=== PATIENT | female | born 1970 | race Caucasian/White ===

== ENCOUNTER 2023-12-25 08:56 | Day surgery (SDC) | payer BC ==
[~2023-12-25] VITALS: Ht 162.6 cm; Wt 90.7 kg
[2023-12-25] VITALS (17 sets, daily range): BP systolic 98–163; BP diastolic 59–103
[~2023-12-25 08:56] MED LIST: ACET325 PO; CYCL10; Flomax0.4 MG PO; Lactated Ringer's 1,000 ML IV SCH; NAPR220 PO; Percocet 5-3251 EACH PO
[2023-12-25] MEDS ORDERED: propofoL 40 ML IV ONE (10:19)
--- NOTE | 2023-12-25 10:24 | NUR ---
12/25/23 Leena Crouch HISTORY, CHART, MEDICATIONS AND ALLERGIES REVIEWED BEFORE START OF PROCEDURE. PATIENT CONFIRMS NPO STATUS AND AGREES WITH SCHEDULED PROCEDURE. 3-LEAD EKG REVIEWED WITH PHYSICIAN PRIOR TO START OF PROCEDURE. MONITOR INTACT WITH CONTINUOUS PULSE OXIMETRY,CAPNOGRAPHY, 3-LEAD EKG, INTERMITTENT BP. SUPPLEMENTAL O2 TO BE TITRATED THROUGHOUT PROCEDURE TO MAINTAIN O2 SATURATION ABOVE 90%. PATIENT DETERMINED TO BE ASA APPROPRIATE FOR PROPOFOL SEDATION PRIOR TO START OF PROCEDURE BY .MALLAMPATI CLASS 2 AIRWAY: COMPLETE VISUALIZATION OF THE UVULA.
[2023-12-25] MEDS ORDERED: Atropine Sulfate 0.1 MG/ML 10ML SYR ONE (10:33)
--- NOTE | 2023-12-25 11:19 | NUR ---
Patient up to Ambulate independently. Gait steady.TOLERATING PO. Discharge instructions reviewed with patient. Patient verbalizes understanding. Copy given to patient to take home. Discharged via wheelchair to private car for ride home WITH SPOUSE
== END 2023-12-25 22:51 | disposition home or self-care (01) ==
LOC: ORSCMMR 08:56 → ORD 10:00 → ORSCMMR 10:00
PROVIDERS: Internal Medicine Gastroenterology
PROC: 0DBN8ZX Excision of Sigmoid Colon, Via Natural or Artificial Opening Endoscopic, Diagnostic (ICD-10-PCS; principal; 2023-12-25 10:00)
PROC: 0DBK8ZX Excision of Ascending Colon, Via Natural or Artificial Opening Endoscopic, Diagnostic (ICD-10-PCS; principal; 2023-12-25 10:00)
PROC: 0DBL8ZX Excision of Transverse Colon, Via Natural or Artificial Opening Endoscopic, Diagnostic (ICD-10-PCS; principal; 2023-12-25 10:00)
PROC: 0DBB8ZX Excision of Ileum, Via Natural or Artificial Opening Endoscopic, Diagnostic (ICD-10-PCS; principal; 2023-12-25 10:00)
DX: R19.7 Diarrhea, unspecified (principal); K62.4 Stenosis of anus and rectum
CPT/HCPCS: 88305; J0461; J2704; J7120